=== PATIENT | female | born 1960 | race Caucasian/White ===

== ENCOUNTER → 2018-07-16 | Outpatient (CLI) | payer OTHER ==
[2018-07-16 10:17] LABS: CHOLESTEROL RISK RATIO 2.629 (<5)
[2018-07-16 11:07] LABS: HEMOGLOBIN A1c 5.9 %
== END ==
LOC: M WUC 08:11
PROVIDERS: ATTEND Psychiatry & Neurology Psychiatry
DX: Z51.81 Encounter for therapeutic drug level monitoring (principal); Z79.899 Other long term (current) drug therapy

== ENCOUNTER → 2019-12-05 | Outpatient (CLI) | payer OTHER ==
[2019-12-05 11:13] LABS: CALCIUM LEVEL 9.3 MG/DL (8.5-10.1); CHOLESTEROL RISK RATIO 3.413 (<5); CREATININE FOR GFR 1.09 MG/DL (0.55-1.30); GLOMERULAR FILTRATION RATE 54.7 (>51); POTASSIUM SERUM 4.3 MEQ/L (3.5-5.1)
== END ==
LOC: M WUC 08:04
PROVIDERS: ATTEND Student in an Organized Health Care Education/Training Program
DX: E78.5 Hyperlipidemia, unspecified (principal)

== ENCOUNTER → 2021-06-07 | Outpatient (CLI) | payer OTHER | LOC: M WHC 12:45 | PROVIDERS: ATTEND Internal Medicine | DX: Z12.31 Encounter for screening mammogram for malignant neoplasm of breast (principal) ==

== ENCOUNTER → 2022-01-08 | Outpatient (CLI) | payer OTHER ==
[~2022-01-08] MED LIST: ATIV1TAB10 PO; ATOR1TAB21 PO; BUPR300T92 PO; LATU40TA2 PO
== END ==
LOC: M LABSMTC 09:41
PROVIDERS: ATTEND Anesthesiology
DX: Z01.812 Encounter for preprocedural laboratory examination (principal); Z11.52 Encounter for screening for COVID-19

== ENCOUNTER 2022-01-13 10:49 | Day surgery (SDC) | payer OTHER ==
[~2022-01-13] VITALS: Ht 165.1 cm; Wt 84.4 kg
[2022-01-13] MEDS ORDERED: LIDOCAINE 2% 100MG/5ML SDV (FOR ANES.) As Ordered ONE (12:47)
[2022-01-13 13:35] VITALS: BP 120/78
== END 2022-01-13 13:40 | disposition home or self-care (01) ==
LOC: M OPP 10:49
PROVIDERS: ATTEND Internal Medicine Gastroenterology
DX: Z12.11 Encounter for screening for malignant neoplasm of colon (principal); K63.5 Polyp of colon; K64.0 First degree hemorrhoids; F41.9 Anxiety disorder, unspecified; F31.9 Bipolar disorder, unspecified; Z79.899 Other long term (current) drug therapy

== ENCOUNTER → 2022-04-09 | Outpatient (REF) | payer OTHER | LOC: M PLALAB 16:00 | PROVIDERS: ATTEND Advanced Practice Midwife | DX: Z12.4 Encounter for screening for malignant neoplasm of cervix (principal) | CPT/HCPCS: 87624; G0123 ==

== ENCOUNTER → 2022-05-03 | Outpatient (CLI) | payer OTHER ==
[2022-05-03 09:10] LABS: ALBUMIN 3.4 G/DL (3.2-5.2); CALCIUM LEVEL 9.2 MG/DL (8.3-10.6); CHOLESTEROL RISK RATIO 2.31 (<5); CREATININE FOR GFR 1.08 MG/DL (0.55-1.30); GLOMERULAR FILTRATION RATE 54.9 (>45); HDL CHOLESTEROL 64.7 MG/DL (>40); LDL CHOLESTEROL 68.9 MG/DL (<100); NON-HDL-C 85.3 MG/DL; POTASSIUM SERUM 4.5 MMOL/L (3.5-5.1); TOTAL PROTEIN 6.4 G/DL (5.7-8.2)
== END ==
LOC: M LAB 08:16
PROVIDERS: ATTEND Internal Medicine
DX: E78.5 Hyperlipidemia, unspecified (principal)

== ENCOUNTER → 2022-05-29 | Outpatient (CLI) | payer OTHER | LOC: M WHC 10:05 | PROVIDERS: ATTEND Advanced Practice Midwife | DX: N64.53 Retraction of nipple (principal); Z78.0 Asymptomatic menopausal state; Z78.9 Other specified health status; Z80.0 Family history of malignant neoplasm of digestive organs; Z80.42 Family history of malignant neoplasm of prostate | CPT/HCPCS: 76642; 77066; G0279 ==

== ENCOUNTER → 2023-06-10 | Outpatient (CLI) | payer OTHER | LOC: M WHC 07:58 | PROVIDERS: ATTEND Internal Medicine | DX: Z12.31 Encounter for screening mammogram for malignant neoplasm of breast (principal) ==

== ENCOUNTER → 2024-06-22 | Outpatient (CLI) | payer OTHER ==
[~2024-06-22] MED LIST changes: +BUPR-766 PO; -BUPR300T92 PO
== END ==
LOC: M WHC 11:02
PROVIDERS: ATTEND Internal Medicine
DX: Z12.31 Encounter for screening mammogram for malignant neoplasm of breast (principal); R92.333 Mammographic heterogeneous density, bilateral breasts